=== PATIENT | female | born 1970 | race Hispanic/Latino ===

== ENCOUNTER 2018-04-18 17:30 | Emergency (ER) | payer BC, OTHER ==
[2018-04-18] MEDS ORDERED: TETANUS/DIPHTHERIA TOXOID [ADULT] 0.5 ML VIAL IM ONE (17:44)
[2018-04-18] MEDS ORDERED: LIDOCAINE HCL-MPF 1% 2ML VIAL ONE (18:23)
== END 2018-04-18 19:33 | disposition home or self-care (01) ==
LOC: EDH 17:30
DX: S62.612A Displaced fracture of proximal phalanx of right middle finger, initial encounter for closed fracture (principal); I10 Essential (primary) hypertension; E07.9 Disorder of thyroid, unspecified; W18.39XA Other fall on same level, initial encounter; Y93.89 Activity, other specified; Y92.89 Other specified places as the place of occurrence of the external cause; Y99.8 Other external cause status
CPT/HCPCS: 26742; 73130; 73140; 90471; 90714; 99284; J3490